=== PATIENT | male | born 1985 | race American Indian/Alaskan Native ===

== ENCOUNTER 2018-07-28 22:22 | Emergency (ER) | payer SELFPAY ==
--- NOTE | 2018-07-28 22:34 | Emergency Department Report ---
Chief Complaint: Extremity Injury, Lower Stated Complaint: RT FOOT PAIN Time Seen by Provider: 07/28/18 22:33 - HPI History of Present Illness: WORK SENT HIM HERE BECAUSE HE WAS COMPLAINING OF PAIN HE STATES DUE TO CALLOUS ON HIS FEET NO [facility]H AMBULATORY MSE screening note: Focused history and physical exam performed. Due to findings the following was ordered: ED Disposition for MSE Condition: Stable
[2018-07-28 22:40] VITALS: BP 126/83
== END 2018-07-29 00:37 | disposition left against medical advice (07) ==
LOC: ED 22:22
DX: M79.671 Pain in right foot (principal); Z53.21 Procedure and treatment not carried out due to patient leaving prior to being seen by health care provider